=== PATIENT | male | born 2000 | race Caucasian/White ===

== ENCOUNTER 2020-10-10 12:03 | Outpatient (CLI) | payer BC, SELFPAY ==
[2020-10-11 14:23] LABS: COVID-19 RT-PCR UVMMC Result Negative (Negative)
== END 2020-10-10 12:04 | disposition home or self-care (01) ==
LOC: LBO 12:04
PROVIDERS: Visit Provider Nurse Practitioner Family
DX: Z20.822 Contact with and (suspected) exposure to COVID-19 (principal)
CPT/HCPCS: U0003

== ENCOUNTER 2020-11-13 03:25 | Outpatient (CLI) | payer BC, SELFPAY | END 2020-11-13 03:26 | disposition home or self-care (01) | PROVIDERS: PCP Nurse Practitioner Family | DX: Z20.822 Contact with and (suspected) exposure to COVID-19 (principal) | CPT/HCPCS: U0003 ==

== ENCOUNTER 2020-12-01 08:25 | Outpatient (CLI) | payer BC, SELFPAY | END 2020-12-01 08:26 | disposition home or self-care (01) | PROVIDERS: PCP Nurse Practitioner Family | DX: Z20.822 Contact with and (suspected) exposure to COVID-19 (principal) | CPT/HCPCS: U0003 ==

== ENCOUNTER 2021-12-01 10:15 | Outpatient (CLI) | payer BC, SELFPAY ==
[2021-12-01 12:31] LABS: Abs Immature Grans 0.01 10^3/uL (0.0-0.06); Absolute Basophil Count 0.06 10^3/uL (0.0-0.2); Absolute Eosinophil Count 0.15 10^3/uL (0.0-0.7); Absolute Lymphocyte Count 2.02 10^3/uL (1.2-3.4); Absolute Monocyte Count 0.36 10^3/uL (0.1-0.8); Absolute Neutrophil Count 4.97 10^3/uL (1.2-6.7); Basophils % 0.8; HCT 48.5 % (40.0-50.0); HGB 15.2 g/dL (13.5-17.5); Immature Grans % 0.1; Lymphocytes % 26.7; MCH 26.9 pg (27.0-33.0); MCHC 31.3 % (32.0-36.0); MCV 86 fL (80-95); MPV 10.8 fL (8.0-11.0); Monocytes % 4.8; Neutrophils % 65.6; Platelet Count 281 10^3/uL (130-400); RBC 5.65 10^6/uL (4.36-5.78); RDW 13.1 % (11.8-14.1); WBC 7.57 10^3/uL (4.4-10.8)
[2021-12-01 12:54] LABS: Calculated LDL 87 mg/dL (<100); Cholesterol 152 mg/dL (<200); HDL Cholesterol 56 mg/dL (40-60); Triglyceride 45 mg/dL (<150)
[2021-12-01 12:54] LABS: ALT 22 U/L (16-63); AST 8 U/L (15-37); Albumin 4.4 g/dL (3.4-5.0); Alkaline Phosphatase 76 U/L (46-116); BUN 10 mg/dL (7-18); Bilirubin, Total 0.2 mg/dL (0.2-1.0); Calcium 9.1 mg/dL (8.5-10.1); Chloride 104 mmol/L (98-107); Glucose 102 mg/dL (74-106); Lipase 57 U/L (73-393); Potassium 4.5 mmol/L (3.5-5.1); Sodium 140 mmol/L (136-145); Total Protein 7.5 g/dL (6.4-8.2)
[2021-12-01 13:01] LABS: Hemoglobin A1C 5.6 % (<5.7)
== END 2021-12-01 10:16 | disposition home or self-care (01) ==
LOC: LOS 10:16
PROVIDERS: PCP Nurse Practitioner Family; Visit Provider Nurse Practitioner Family
DX: R11.2 Nausea with vomiting, unspecified (principal); Z13.220 Encounter for screening for lipoid disorders; Z13.1 Encounter for screening for diabetes mellitus
CPT/HCPCS: 36415; 80053; 80061; 83690; 83036; 85025

== ENCOUNTER 2024-10-19 11:38 | Emergency (ER) | payer BC, SELFPAY ==
[2024-10-19 11:51] VITALS: BP 130/80; PULSE 85; RESP 20; TEMP 36.7; O2SAT 98
[2024-10-19 13:17] LABS: *AMPHETAMINES SCREEN URINE Negative (Negative); *BARBITURATES SCREEN URINE Negative (Negative); *BENZODIAZEPINES SCREEN URINE Negative (Negative); Cannabinoids THC Positive (Negative); Cocaine Screen,Urine Negative (Negative); METHADONE URINE SCREEN Negative (Negative); OPIATES URINE SCREEN Negative (Negative)
[2024-10-19 13:19] LABS: Tricyclic Antidepressants Negative (Negative)
[2024-10-19 13:37] LABS: Abs Immature Grans 0.01 10^3/uL (0.0-0.06); Absolute Basophil Count 0.07 10^3/uL (0.0-0.2); Absolute Eosinophil Count 0.23 10^3/uL (0.0-0.7); Absolute Lymphocyte Count 1.78 10^3/uL (1.2-3.4); Absolute Monocyte Count 0.35 10^3/uL (0.1-0.8); Absolute Neutrophil Count 4.81 10^3/uL (1.2-6.7); Eosinophils % 3.2 %; HCT 44.8 % (40.0-50.0); HGB 14.6 g/dL (13.5-17.5); Immature Grans % 0.1 %; Lymphocytes % 24.6 %; MCH 27.3 pg (27.0-33.0); MCHC 32.6 % (32.0-36.0); MCV 84 fL (80-95); MPV 9.7 fL (8.0-11.0); Monocytes % 4.8 %; Neutrophils % 66.3 %; Platelet Count 278 10^3/uL (130-400); RBC 5.34 10^6/uL (4.36-5.78); RDW 13.4 % (11.8-14.1); RDW-SD 41.1 fL; WBC 7.25 10^3/uL (4.4-10.8)
[2024-10-19 14:00] LABS: ALT 39 U/L (16-63); AST 27 U/L (15-37); Albumin 4.4 g/dL (3.4-5.0); Alkaline Phosphatase 87 U/L (46-116); Anion Gap 10.6 mmol/L (3-11); BUN 13 mg/dL (7-18); Bilirubin, Total 0.5 mg/dL (0.2-1.0); CO2 27.4 mmol/L (21.0-32.0); CREATININE 0.8 mg/dL (0.70-1.30); Calcium 9.5 mg/dL (8.5-10.1); Chloride 103 mmol/L (98-107); Estimated GFR 126.74 (mL/min/1.73m2); Glucose 102 mg/dL (74-106); Sodium 141 mmol/L (136-145); TSH (W/Ref FT4) 1.38 uIU/mL (0.36-3.74)
[2024-10-19 14:01] LABS: Salicylate < 2.8 mg/dL (<2.8)
[2024-10-19 14:03] LABS: Acetaminophen < 2 ug/mL (10-30)
--- NOTE | 2024-10-19 15:16 | ED.GENADUL_ITS ---
Discharge Plan Discharge Details Chief Complaint: PsychEval Primary Care Provider: Saji Barakat ED Provider: Joceline Wilder Home Meds and New Rx's Prescriptions: No Action sertraline 50 mg tablet 50 mg PO DAILY Qty: 90 3RF HPI General Date/Time Provider Initiated Documentation: 10/19/24 12:03 . HPI Narrative: 24-year-old male with suicidal ideation for the past week. His girlfriend's suicide has led to significant depression despite adherence to medication. He has a plan to self-harm by stabbing or slitting his wrist. No auditory or visual hallucinations. No recent medication changes. Negative for chest pain or shortness of breath. Regular THC use, no other illicit substances or alcohol. No history of self-harm attempts or hospitalizations. Related Data Home Medications ?Medication ?Instructions ?Recorded ?Confirmed sertraline 50 mg tablet 50 mg PO DAILY #90 tabs 05/11/24 10/19/24 Previous Rx's ?Medication ?Instructions ?Recorded sertraline 50 mg tablet 50 mg PO DAILY #90 tabs 05/11/24 Allergies Allergy/AdvReac Type Severity Reaction Status Date / Time No Known Allergies Allergy Verified 10/19/24 11:55 General Stated Complaint: PsychEval MARTY: 2 Exam Narrative Exam Narrative: General Appearance: Alert, oriented, not in acute distress, answers questions appropriately. Appears sad with a plan to harm himself. Vital signs: Within normal limits. HEENT: Pupils equal, round, reactive to light and accommodation. Respiratory: Lungs clear to auscultation. Cardiovascular: Regular cardiac rhythm. Skin: Normal affect. Neurological: Follows basic commands. Psychiatric: Appears sad with a plan to harm himself. Other observations: Ambulatory with steady gait. Course Vital Signs Vital signs: Vital Signs Temperature 36.7 C 10/19/24 11:51 Pulse 85 10/19/24 11:51 Respiratory Rate 20 10/19/24 11:51 Blood Pressure 130/80 10/19/24 11:51 Pulse Oximetry 98 10/19/24 11:51 Temperature 36.7 C 10/19/24 11:51 Pulse 85 10/19/24 11:51 Respiratory Rate 20 10/19/24 11:51 Blood Pressure 130/80 10/19/24 11:51 Blood Pressure Position Sitting 10/19/24 11:51 Pulse Oximetry 98 10/19/24 11:51 Oxygen Delivery Method Room Air 10/19/24 11:51 Oxygen Flow Rate 0 10/19/24 11:51 Pain Level 0 10/19/24 11:51 Lab/Test Results Lab/Test Results: Laboratory Tests Range/Units 10/19/24 10/19/24 11:56 13:27 WBC (4.4-10.8) 10^3/uL 7.25 RBC (4.36-5.78) 10^6/uL 5.34 Hgb (13.5-17.5) g/dL 14.6 Hct (40.0-50.0) % 44.8 MCV (80-95) fL 84 MCH (27.0-33.0) pg 27.3 MCHC (32.0-36.0) % 32.6 RDW (11.8-14.1) % 13.4 Plt Count (130-400) 10^3/uL 278 MPV (8.0-11.0) fL 9.7 Immature Gran % % 0.1 Neutrophils % % 66.3 Lymphocytes % % 24.6 Monocytes % % 4.8 Eosinophils % % 3.2 Basophils % % 1.0 Nucleated RBC % (0.0-0.3) % 0.0 Absolute Neutrophils (1.2-6.7) 10^3/uL 4.81 Absolute Lymphocytes (1.2-3.4) 10^3/uL 1.78 Absolute Monocytes (0.1-0.8) 10^3/uL 0.35 Absolute Eosinophils (0.0-0.7) 10^3/uL 0.23 Absolute Basophils (0.0-0.2) 10^3/uL 0.07 Sodium (136-145) mmol/L 141 Potassium (3.5-5.1) mmol/L 4.0 Chloride (98-107) mmol/L 103 Carbon Dioxide (21.0-32.0) mmol/L 27.4 Anion Gap (3-11) mmol/L 10.6 BUN (7-18) mg/dL 13 Creatinine (0.70-1.30) mg/dL 0.8 Est GFR (CKD-EPI 2020) (mL/min/1.73m2) 126.74 Glucose (74-106) mg/dL 102 Calcium (8.5-10.1) mg/dL 9.5 Total Bilirubin (0.2-1.0) mg/dL 0.5 AST (15-37) U/L 27 ALT (16-63) U/L 39 Alkaline Phosphatase (46-116) U/L 87 Total Protein (6.4-8.2) g/dL 8.0 Albumin (3.4-5.0) g/dL 4.4 TSH (0.36-3.74) uIU/mL 1.38 Salicylates (<2.8) mg/dL < 2.8 Urine Opiates Screen (Negative) Negative Urine Methadone Screen (Negative) Negative Acetaminophen (10-30) ug/mL < 2 Ur Barbiturates Screen (Negative) Negative Ur Tricyclics Screen (Negative) Negative Ur Amphetamines Screen (Negative) Negative U Benzodiazepines Scrn (Negative) Negative Urine Cocaine Screen (Negative) Negative Ur THC Screen (Negative) Positive A Ethyl Alcohol (<10) mg/dL 4.0 Medical Decision Making Diagnostic labs show no acute abnormality. Initial Assessment: 24-year-old male presents with suicidal ideation over the past week following his girlfriend's suicide. Denies prior attempts to harm himself or prior hospitalizations. Has a plan to stab himself or slit his wrist. Denies auditory or visual hallucinations, recent change in medications, chest pain, or shortness of breath. Endorses regular THC use, denies additional illicit substances or alcohol consumption. Alert, oriented, not in acute distress, appears sad, pupils equal, round, reactive to light and accommodation, ambulatory with steady gait, cardiac rhythm regular, lungs clear to auscultation, normal affect. ED Course: - Diagnostic labs do not show evidence of acute abnormality. - Patient is pending mental health assessment, will remain voluntary status prior to clinician screening Final Assessment: Patient presents with suicidal ideation following his girlfriend's suicide, with a plan to harm himself. Diagnostic labs show no acute abnormality. Mental health assessment pending. Clinical Impression: - Suicidal ideation Disposition: - Pending mental health assessment MDM Components Evaluation: - Number of Differential Diagnoses or Management Options: Suicidal ideation - Amount and Complexity of Data Reviewed: Diagnostic labs - Risk of Complication and Morbidity or Mortality: High risk due to suicidal ideation and plan to harm himself. Quality:SDOH Health Related Social Needs: No Data to Display [facility] All Active Problems (Updated 12/14/21 @ 14:17 by Saji Barakat NP) Obesity (BMI 30.0-34.9) (Acute) Anxiety (Chronic) Medical History (Updated 12/14/21 @ 14:17 by Saji Barakat NP) Asthma (05/10/13) Rash Anxiety Acne Fever Family History Other Essential hypertension MGF, Diabetes MGF Personal history of malignant neoplasm paternal-leukemia Hyperlipidemia PGF, MGF, MGM Asthma MGM Sister Diabetes Father Hyperlipidemia Social History Smoking/Tobacco Use Status: Never Smoking risk assessment performed?: Yes Alcohol Intake: never Drug use: Never Substance use type: does not use Caregiver/Support person: No Household members: family Communication Needs: None Do you need help understanding health information?: Never Pets and animals: Yes Pets and animals: cat(s), dog(s) and hamster(s) Sexually active: No Do you think of yourself as: straight/heterosexual Current gender identity: male What is your relationship status?: never How often do you talk on the phone with friends or family?: once per week How often do you get together with friends or relatives?: never How often do you attend confucianism or muslim services?: 1-3 times per year Do you belong to any clubs or organized social groups?: no Panel score (0-1 are the most socially isolated patients): 0 What type of physical activity do you participate in: running Duration: 15-30 minutes/day Frequency: 1-2 times per week Amy/Zoroastrianism: No preference Seatbelt use: always Helmet use: Yes Helmet use: always Drive intox or ride w/intox bulk tank driver: No Do you feel safe in your relationship?: Yes
--- NOTE | 2024-10-19 15:33 | PDOC.MHCN_ITS ---
Date of service: 10/19/24 Time of Service: 12:00 Mental Health Emergency Note Release [facility] release signed:: Yes Reason for Visit Client is having cycling passive, active intrusive SI. In the last 2 weeks has the pt presented for ES prior to today?: No Client Information Client is: New Well Housed: Yes Non Suicidal Self Injury Current: Yes, When he sees things, he thinks of dong them. while driving he thinks of crashing into tree, while cooking he thinks of cutting himself. History: yes, Client had SI around situations. If he was driving he would think of crashing into a tree. When cooking, he thinks about cutting himself. Safety Risk/Harm to Self or Others Current Ideation to Harm Self or Others: Yes to self. Intent: no, has no intent. Plan: yes,has a plan. Risk: Risk: Low Risk Duty to warn indicated: No Asssessment/Mental Status Appearance: Unremarkable Attitude: Cooperative and Friendly Behavior: Unremarkable Speech: Normal Affect: Normal Mood: Sad, Stressed, Depressed and Anxious Thought process: Unremarkable Hallucinations: No Delusions: No Attention: Unremarkable Perception: Not impaired Orientation: Fully orientated Memory: Intact Insight: Fair Judgement: Fair Neurovegetative Symptoms Sleep: Decrease Appetitie: Increase Interests: Decrease Energy: Decrease Substance Use: Drug Issues: Other Do you use nicotine?: No Have you used substances in the last 7 days?: yes, Currently smokes 10-20 bowls of THC a day. Additional Issues: Assaultive/Threatening Behavior: No Medical Concerns: No Client engaged in active self harm w/weapon: No Threatening to run away: No Child reported abuse/neglect: No Voluntarily presenting for services: Yes Domestic violence is a concern: No Extreme Psychosis or extreme behavior is present: No Impression Client is a 24 year old male that lives with his mother father and sister unknown to [facility]. Loss Prevention Lead went over screening tools with client due to severity of SI. Client was referred to ES by his therapist Karen Florence. Client has had increase of cycling paths of active intrusive SI. Client was very respectful read it during entire assessment. Clients parents never left his side and were incredibly supportive and had moments of tears and reflecting on their son's struggles. Client shares he has never harmed himself with the intention of ending his life and his only his stomach repeatedly in NSSI. Client shared these thoughts and feeling increased when his girlfriend ended her life a few years ago. Client feels guilty and didn?t get any closure, due to her family not being willing to be open or respecting his place in her life. Client has been unemployed for the past two years and that has taken an incredible mental toll on him. Client expressed the helplessness he feels with depending on his parents. Client shared that he feels useless and worthless for not having a job. Client shared that he has been self medicating with THC in order to keep calm and not stress about thing and that his current medication was not working for him. 50mg of Sertraline a day. Client shared that his parents have been an amazing support and he's very fortunate to have them. Clients father, Marvel, shared that his brother had a similar disposition to client and that they were very close. Engaged in conversation about what impatient treatment looked like and was asked if he was open to LGBTQ wing client said he was. Loss Prevention Lead called ED and let them know client was on their way. Resources Reosurces reviewed and given:: Other Plan/Disposition Recommended Disposition: Hospitalization facilities contacted. Plan: Client was advised to go to [facility] to wait for inpatient treatment. Person reported agreement to plan: Yes Facilities contacted if Applicable [facility] Not accepted, Other [facility] Not accepted, Other [facility] Not accepted, Other, [facility] Not accepted, Other [facility] Not accepted, Other Reports/communication Outcome discussed with: ED/Personnel
--- NOTE | 2024-10-19 15:34 | PDOC.CMSAFE ---
Care Management Safety Plan Status Status: Interim Reason for Wait Reason for Wait: Assessment/Screening Safety Plan Safety Plan: CM will respond to ED to assess patient after patient has been medically cleared and assessed by screener. If screener deems patient meets criteria for psychiatric stabilization CM will facilitate interdepartmental huddle with [facility] screener for safety planning considerations and meet with patient to review [facility] policy and safety plan, establish individual wishes for treatment and maintain patient rights. In the interim; please note safety plan below to guide patient care while awaiting further assessment in the ED.? SAFETY PLAN: 1. Will remain on suicide precautions and in paper clothes.? 2. Will remain in room under direct supervision of one-on-one staff at all times provided by KERRI, INTERNET ASSESSOR mcat instructor. 3. May have paper cups, plates, finger foods as well as a cardboard spoon with which to eat meals. 4. Follow [facility] Management of the Admitted Behavioral Health Patient policy. 5. Comfort bath system only. 6. No personal belongings 7. Parents may visit 8. Phone contact limited to parents and legal self pay representative. 9. Due to VOLUNTARY status, if patient wishes to leave [facility], staff will contact [facility] Crisis Screener ([phone]) and On-Call Paving Foreman ([phone]) as soon as possible. In the event of elopement, notify [facility] Police ([phone]). ? If deemed appropriate for inpatient psychiatric care, safety plan will be established with patient, and care team, to adhere to patient goals, identify restrictions based on behavioral status, address nutrition, and determine allowed personal belongings, tools for hygiene and personal care. As well plan will determine level of activity including ambulation, level of supervision, visitors, and determine privileges based on level of acuity, behaviors and level of engagement by patient.
--- NOTE | 2024-10-19 16:06 | ED.FU.B_ITS ---
Follow Up Plan: Handoff report received from Joceline Wilder, daytime KERRI. is a 24-year-old male, uses he/they pronouns, who presented to the emergency department today for SI with plan and gender dysphoria. Patient medically cleared; no abnormalities noted on blood work. I did meet briefly with patient, they are alert and oriented, no acute distress, easy work of breathing, easily conversational. Denies significant anxiety or acute needs at this time. [facility] crisis evaluation performed, discussed case with Alysha, referrals made for inpatient placement; pt is open to LGBTQ unit. Hydroxyzine given for anxiety with good improvement of symptoms. Handoff report given to Dr. Infante, overnight attending.
[2024-10-19] MEDS: hydrOXYzine HCL 25 MG TAB PO (16:47)
--- NOTE | 2024-10-19 23:36 | ED.PROG_ITS ---
Date of service: 10/19/24 Time of Service: 23:36 Medical Decision Making This patient was signed out to me. Please see previous notes for H&P and initial eval. In brief, 24yo M with SI, medically cleared, [facility] recommended inpatient. Pending voluntary placement. Overnight no acute events. Will be signed out to oncoming physician; plan remains as above. Quality:[facility] Health Related Social Needs: No Data to Display Discharge Plan Discharge Details Chief Complaint: PsychEval Clinical Impression: Suicide ideation, Gender dysphoria, Anxiety Primary Care Provider: Saji Barakat ED Provider: Yanci Infante Home Meds and New Rx's Prescriptions: No Action sertraline 50 mg tablet 50 mg PO DAILY Qty: 90 3RF
[2024-10-20] MEDS: Sertraline 50 MG TAB PO (07:44)
[2024-10-20 08:06] VITALS: BP 122/73; PULSE 71; RESP 16; TEMP 36.3; O2SAT 99
--- NOTE | 2024-10-20 08:31 | W.EDPROG ---
Date of service: 10/20/24 Time of Service: 08:31 Medical Decision Making care assumed from off going provider. patient currently pending Voluntary inpatient psychiatric placement for SI. Quality:SDOH Health Related Social Needs: No Data to Display Discharge Plan Discharge Details Chief Complaint: PsychEval Clinical Impression: Suicide ideation, Gender dysphoria, Anxiety Primary Care Provider: Saji Barakat ED Provider: Anjelica Balderas Home Meds and New Rx's Prescriptions: No Action sertraline 50 mg tablet 50 mg PO DAILY Qty: 90 3RF
--- NOTE | 2024-10-20 15:37 | W.EDPROG ---
Date of service: 10/20/24 Time of Service: 15:37 Medical Decision Making Patient seeking voluntary placement for SI, no issues reported on prior shift and currently without new acute complaints. Will continue to monitor until safe disposition found. Quality:SDOH Health Related Social Needs: No Data to Display Discharge Plan Discharge Details Chief Complaint: PsychEval Clinical Impression: Suicide ideation, Gender dysphoria, Anxiety Primary Care Provider: Saji Barakat ED Provider: Peter Malin Home Meds and New Rx's Prescriptions: No Action sertraline 50 mg tablet 50 mg PO DAILY Qty: 90 3RF
--- NOTE | 2024-10-20 17:29 | CMSP_ITS ---
Date of service: 10/20/24 Time of Service: 17:29 Care Management Safety Plan Status Status: Voluntary Reason for Wait Reason for Wait: Inpatient Admission Safety Plan Safety Plan: VOLUNTARY FOR INPATIENT PSYCHIATRIC STABILIZATION.? Patient is appropriate in all interactions since arriving at [facility]; Pt has demonstrated appropriate coping and communication skills, has articulated his or her needs and concerns and is fully engaged during staff interactions. Safety plan has been established with patient, and care team, to adhere to patient goals, identify restrictions based on behavioral status, address nutrition, and determine allowed personal belongings, tools for hygiene and personal care. Determine level of activity including ambulation, level of superv ision, visitors, and determine privileges based on behaviors and level of engagement by pt. VOLUNTARY SAFETY PLAN: 1. Will remain on suicide precautions, in paper clothes 2. Will remain in Zone B under direct supervision of one-on-one staff at all times provided by [employer]; KERRI, [employer] manager technical support. 3. May have paper cups, plates, finger foods as well as a cardboard spoon with which to eat meals. 4. Follow [facility] Management of the Admitted Behavioral Health Patient policy. 5. Shower available in Zone B without restriction. 6. Personal belongings-soft items permitted at RN discretion. 7. Visitors-parents may visit 8. Activities: soft cart items, hospital tablets (Netflix/Guido+/music) approved per RN discretion. 9.? Bathroom available in Zone B without restriction. 10. Phone: limited to [facility] cordless phone at RN discretion. Due to VOLUNTARY status, if patient wishes to leave [facility], staff will contact [facility] Crisis Screener ([phone]) and Fruit Preserver ([phone]) as soon as possible. In the event of elopement, notify [facility] Police ([phone]).
--- NOTE | 2024-10-20 22:23 | PDOC.MHPN2 ---
Date of service: 10/20/24 Time of Service: 15:30 Mental Health Emergency Note Release [facility] release signed:: Yes Reason for Visit Client seeking inpatient placement due to increased SI. In the last 2 weeks has the pt presented for ES prior to today?: No Client Information Client is: New Well Housed: Yes Non Suicidal Self Injury Current: Yes, Client obsesses in anything he has means to. History: No Safety Risk/Harm to Self or Others Current Ideation to Harm Self or Others: Yes to self. Intent: yes, has intent. Plan: no.does not have a plan. Risk: Does risk to harm exist?: yes. Access to means: No. Risk: Low Risk Duty to warn indicated: No Plan/Disposition Recommended Disposition: Hospitalization facilities contacted. Reports/communication Outcome discussed with: ED/Personnel
--- NOTE | 2024-10-21 06:43 | ED.PROG_ITS ---
Date of service: 10/21/24 Time of Service: 06:43 Medical Decision Making Patient remains in ED awaiting placement for voluntary psychiatric admission for anxiety, depression, SI. No incidents overnight. Quality:SDOH Health Related Social Needs: No Data to Display Discharge Plan Discharge Details Chief Complaint: PsychEval Clinical Impression: Suicide ideation, Gender dysphoria, Anxiety Primary Care Provider: Saji Barakat ED Provider: Marvel Chua [place] and New Rx's Prescriptions: No Action sertraline 50 mg tablet 50 mg PO DAILY Qty: 90 3RF
[2024-10-21] MEDS: Sertraline 50 MG TAB PO (07:54)
[2024-10-21 08:19] VITALS: BP 138/78; PULSE 80; RESP 16; TEMP 36.2; O2SAT 98
--- NOTE | 2024-10-21 14:04 | W.EDPROG ---
Date of service: 10/21/24 Time of Service: 14:04 Medical Decision Making Care assumed from off going provider. Patient is a gentleman currently pending voluntary inpatient placement due to suicidal ideation and depression. He met with mental health services today in conjunction with his family and everyone feels at this time he is stable for discharge home with a safety plan. He has close follow-up and therapy scheduled Quality:[facility] Health Related Social Needs: No Data to Display Discharge Plan Disposition Patient Disposition: Home Condition: Stable Discharge Details Clinical Impression: Suicide ideation, Gender dysphoria, Anxiety Primary Care Provider: Saji Barakat ED Provider: Anjelica Balderas Home Meds and New Rx's Prescriptions: No Action sertraline 50 mg tablet 50 mg PO DAILY Qty: 90 3RF Discharge Instructions Additional Instructions: Please follow-up with your therapist and resources provided to you by mental health. You have agreed to a safety plan. Please follow the safety plan or return to the emergency department if you need any emergent care.
--- NOTE | 2024-10-26 14:08 | MHPN_ITS ---
Date of service: 10/21/24 Time of Service: 14:00 Mental Health Emergency Note Release [facility] release signed:: Yes Reason for Visit Client is struggling with SI with a plan. In the last 2 weeks has the pt presented for ES prior to today?: No Client Information Client is: New Well Housed: Yes Non Suicidal Self Injury Current: No History: No Safety Risk/Harm to Self or Others Current Ideation to Harm Self or Others: Yes to self. Intent: no, has no intent. Plan: yes,has a plan. Risk: Does risk to harm exist?: yes. Access to means: Yes. Types of Means: Other weapons and Medication. Counseling provided: No Risk: Low Risk Duty to warn indicated: No Asssessment/Mental Status Appearance: Unremarkable Attitude: Cooperative and Friendly Behavior: Unremarkable Speech: Normal and Soft Affect: Normal Mood: Sad, Stressed, Depressed and Anxious Thought process: Unremarkable and Poverty of content Hallucinations: No evidence Delusions: No evidence Attention: Unremarkable Perception: Not impaired Orientation: Fully orientated Memory: Intact Insight: Excellent Judgement: Excellent Neurovegetative Symptoms Sleep: No change Appetitie: No change Interests: No change Energy: No change Substance Use: Do you use nicotine?: No Have you used substances in the last 7 days?: No Additional Issues: Assaultive/Threatening Behavior: No Medical Concerns: No Client engaged in active self harm w/weapon: No Threatening to run away: No Child reported abuse/neglect: No Voluntarily presenting for services: Yes Domestic violence is a concern: No Extreme Psychosis or extreme behavior is present: No Impression Client reports that he is much better today and does not require as much assistance as the other two individuals in Zone B. This show card writer stressed to client that everyone has their own level of need and everyone's needs look different. Client insisted that he was feeling better and no longer wanted to seek inpatient. Client's mother and sister were in the room with us and mother, Skylar agreed to being able to support her son in transitioning home. Resources Reosurces reviewed and given:: Crisis Bed and NK Plan/Disposition Recommended Disposition: Hospitalization facilities contacted. Plan: Client is safety planned home with support of his parents. Person reported agreement to plan: Yes Reports/communication Outcome discussed with: ED/Personnel
== END 2024-10-21 14:22 | disposition home or self-care (01) ==
PROVIDERS: Physician Assistant; Emergency Provider Emergency Medicine; PCP Nurse Practitioner Family
DX: R45.851 Suicidal ideations (principal); F32.A Depression, unspecified; F41.9 Anxiety disorder, unspecified
CPT/HCPCS: 00123; 36415; 80053; 80307; 99284; 80320; 80329; 84443; 85025